=== PATIENT | male | born 1960 | race Caucasian/White ===

== ENCOUNTER 2023-05-09 08:00 | Outpatient (CLI) | payer BC ==
--- NOTE | 2023-05-09 12:51 | XRAY Report ---
PROCEDURE: Hip w/Pelvis 2-3V RT INDICATIONS: RIGHT HIP PAIN TECHNIQUE: AP pelvis with lateral view(s) of the right hip(s). COMPARISON: None. FINDINGS: Bones: No acute fractures or dislocations. No suspicious bony lesions. Degenerative changes of the right hip. Soft tissues: No suspicious soft tissue calcifications or masses. IMPRESSION: No acute bony abnormality. Right hip osteoarthrosis. Reviewed by: Johny Mccain MD on 05/09/2023 11:50 AM SANDRO Approved by: Johny Mccain MD on 05/09/2023 11:50 AM SANDRO Station ID: [id number]
== END 2023-05-09 23:59 | disposition home or self-care (01) ==
LOC: DI.S 08:00
PROVIDERS: ATTEND Physician Assistant
DX: M16.11 Unilateral primary osteoarthritis, right hip (principal)